=== PATIENT | male | born 1995 | race Caucasian/White ===

== ENCOUNTER 2023-06-12 08:05 | Day surgery (SDC) | payer MEDICAID ==
[~2023-06-12 08:05] MED LIST: Bupivacaine 0.5% 50 ML MDV ONE; Lidocaine 1% with EPINEPHrine 1:100,000 50 ML MDV ONE
[2023-06-12] MEDS ORDERED: Midazolam 1 MG/ML 2 ML SDV ONE (08:15)
[2023-06-12] MEDS ORDERED: fentaNYL 100 MCG/2 ML SDV ONE (08:15)
[2023-06-12] MEDS ORDERED: Propofol 200 MG/20 ML SDV ONE ×2 (08:15→10:55)
[2023-06-12] MEDS ORDERED: Dextrose 5%-Lactated Ringers 1,000 ML IV SCH (09:00)
[2023-06-12] MEDS ORDERED: ceFAZolin 2 GM in Sodium Chloride 0.9% 50 ML IV ONE (09:00)
[2023-06-12] MEDS ORDERED: ceFAZolin 2 GM in Premix Bag 1 BAG IV ONE (09:00)
[2023-06-12] MEDS ORDERED: Meropenem 500 MG SDV ONE (11:12)
[2023-06-12] MEDS ORDERED: Bacitracin Oint 1 GM U/D Packet ONE (11:25)
[2023-06-12] MEDS ORDERED: Acetaminophen 500 MG Tab PO ONE (12:19)
[2023-06-12] MEDS ORDERED: Ibuprofen 600 MG Tab PO ONE (12:21)
[2023-06-12] MEDS ORDERED: Doxycycline 100 MG Cap PO ONE (12:35)
== END 2023-06-12 13:45 | disposition home or self-care (01) ==
LOC: JP.SDS 08:05
PROVIDERS: ATTEND Surgery
DX: L72.0 Epidermal cyst (principal); L08.89 Other specified local infections of the skin and subcutaneous tissue
CPT/HCPCS: 11406; 12032; 87070; 87075; 87077; 87186; 87205; 88304; A9270; J0690; J2185; J2250; J2704; J3010; J3490; J7121